=== PATIENT | female | born 1985 | race Caucasian/White ===

== ENCOUNTER 2017-04-15 12:33 | Emergency (ER) | payer OTHER ==
--- NOTE | 2017-04-15 12:42 | PHYS DOC ---
General Chief Complaint: asthma Stated Complaint: SOA Time Seen by MD: 12:41 Source: patient Exam Limitations: no limitations Problems: History of Present Illness Initial Comments Patient is a 32-year-old female who comes complaining of asthma symptoms. Patient states that for the past 2 weeks she's had worsening shortness of breath with exertion. She's been using DuoNeb occasionally without any relief. She has a productive cough with yellow sputum and has had facial pain and pressure with green nasal discharge for 10 days. She denies any chest pain diaphoresis nausea vomiting or neurologic deficit. She is a heavy smoker but states she has cut down the past few days due to this illness. She denies any other symptoms. Vital signs in the emergency department are unremarkable Timing/Duration: other (2 weeks) Severity: moderate Modifying Factors: improves with medication Associated Symptoms: cough, shortness of breath Allergies: Coded Allergies: aspirin (Verified Allergy, Unknown, 04/15/17) latex (Verified Allergy, Unknown, 04/15/17) Uncoded Allergies: TAPE (Adverse Reaction, Unknown, 04/15/17) MEDICAL TAPE Past Medical History Medical History: other (COPD, hypothyroid) Surgical History: other (cholecystectomy, CS, tonsils, thyroidectomy) Social History Smoker: greater than 1 pack/day Alcohol: none Drugs: none Review of Systems Constitutional: denies chills, denies diaphoresis, denies fever, denies malaise Respiratory: see HPI Cardiovascular: denies chest pain, denies palpitations, denies syncope Gastrointestinal: denies abdominal pain, denies diarrhea, denies nausea, denies vomiting Genitourinary: denies dysuria, denies frequency, denies hematuria Musculoskeletal: denies back pain, denies joint swelling, denies neck pain Psychiatric/Neurological: denies headache, denies numbness, denies paresthesia Hematologic/Lymphatic: denies blood clots, denies easy bleeding, denies easy bruising Physical Exam General Appearance: no apparent distress Eyes: bilateral eye normal inspection, bilateral eye PERRL, bilateral eye EOMI Ear, Nose, Throat: hearing grossly normal, normal ENT inspection, normal pharynx (green nasal discharge and postnasal drip, maxillary and frontal sinus tenderness) Neck: non-tender, supple Respiratory: chest non-tender, other (wheezes diffusely with fair air movement and globally decreased breath sounds) Cardiovascular: normal peripheral pulses, regular rate, rhythm Gastrointestinal: non tender, soft Extremities: non-tender, normal inspection 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 PHYSICIAN: MARGIE HICKS DO REASON: sob PROCEDURE: CHEST PA & LATERAL EXAM: CHEST 2 VIEWS History: Shortness of breath COMPARISON: 04/08/2012 TECHNIQUE: PA and lateral chest radiographs FINDINGS: The cardiomediastinal silhouette is within normal limits. The lungs are clear bilaterally. The costophrenic sulci are clear and well demarcated bilaterally. IMPRESSION: No radiographic evidence of an acute cardiopulmonary abnormality. DICTATED AND SIGNED BY: JOSE MAI MD DATE: 04/15/17 1333 CC: MARGIE HICKS DO; KIZZY MARIA Labs unremarkable Patient rechecked after DuoNeb and Medrol. There is a faint wheezes diffusely with good air movement patient states she is feeling much better. Antibiotic treatment will be primarily for sinus infection the patient agrees to stop smoking she expressed agreement and understanding with the treatment plan. Departure Time of Disposition: 15:04 Disposition: 01 HOME, SELF-CARE Diagnosis: COPD exacerbation, sinusitis, tobaccoism Condition: STABLE Patient Instructions: Chronic Obstructive Pulmonary Disease Exacerbation, Easy- to-Read, Smoking Hazards Additional Instructions: Off work through Wednesday note given. Stop smoking, seek medical assistance if necessary. Rest, no strenuous activity. Avoid smoke and environmental allergens. Aggressive hydration with Gatorade or water. Continue current medications including your DuoNeb's every 6 hours. Prescription: cefdinir, albuterol nebs, guaifenesin with codeine, prednisone, albuterol MDI Take medications with food. Follow-up with your doctor on Wednesday for recheck. Return to ED with new or changing symptoms. MARGIE HICKS DO Apr 15, 2017 12:42
[2017-04-15 12:50] VITALS: BP 106/78
--- NOTE | 2017-04-15 13:35 | RAD ---
EXAM: CHEST 2 VIEWS History: Shortness of breath COMPARISON: 04/08/2012 TECHNIQUE: PA and lateral chest radiographs FINDINGS: The cardiomediastinal silhouette is within normal limits. The lungs are clear bilaterally. The costophrenic sulci are clear and well demarcated bilaterally. IMPRESSION: No radiographic evidence of an acute cardiopulmonary abnormality.
[2017-04-15 13:36] LABS: BASO # 0.1 x10^3/uL (0.0-0.2); BASO % 1 % (0-3); EOS # 0.2 x10^3/uL (0.0-0.7); EOS % 2 % (0-3); HEMATOCRIT 37.5 % (36.0-47.0); LYMPH # 2.7 x10^3/uL (1.0-4.8); LYMPH % 31 % (24-48); MEAN CORPUSCULAR HEMOGLOBIN 32 pg (25-35); MEAN CORPUSCULAR HGB CONC 35 g/dL (31-37); MEAN CORPUSCULAR VOLUME 93 fL (79-100); MONO # 0.3 x10^3/uL (0.0-1.1); MONO % 4 % (0-9); NEUT # 5.5 x10^3uL (1.8-7.7); NEUT % 63 % (31-73); PLATELET COUNT 219 x10^3/uL (140-400); RED BLOOD COUNT 4.04 x10^6/uL (3.50-5.40); RED CELL DISTRIBUTION WIDTH 13.4 % (11.5-14.5); WHITE BLOOD COUNT 8.7 x10^3/uL (4.0-11.0)
[2017-04-15 13:42] LABS: CALCIUM 8.6 mg/dL (8.5-10.1); CREATININE 1.5 mg/dL (0.6-1.0); GFR 39.8; POTASSIUM 3.7 mmol/L (3.5-5.1)
[2017-04-15] MEDS ORDERED: IPRATRPIUM/ALBUTEROL 0.5/2.5MG 3 ML NEBU. NEB ONE (13:45)
[2017-04-15] MEDS ORDERED: IV NORMAL SALINE 1,000ML 1,000 ML IV SCH (13:45)
[2017-04-15] MEDS ORDERED: IV NORMAL SALINE 50ML 50 ML ONE (13:45)
[2017-04-15] MEDS ORDERED: guaiFENesin/CODEINE 100mg/10mg 5 ML LIQUID PO ONE (13:45)
[2017-04-15] MEDS ORDERED: cefTRIAXone SODIUM 1 GM VIAL IV ONE (13:45)
[2017-04-15] MEDS ORDERED: methylPREDNISolone SOD SUCC PF 125 MG/2 ML VIAL. IV ONE (13:45)
[2017-04-15] MEDS ORDERED: PRED20TA PO (15:03)
[2017-04-15] MEDS ORDERED: ALBU1.25 NEB (15:03)
[2017-04-15] MEDS ORDERED: CEFD300C PO (15:03)
[2017-04-15] MEDS ORDERED: GUAI118L13 PO (15:03)
[2017-04-15] MEDS ORDERED: ALBU8.5H8 INH (15:07)
== END 2017-04-15 15:38 | disposition home or self-care (01) ==
LOC: ER 12:33
DX: J44.1 Chronic obstructive pulmonary disease with (acute) exacerbation (principal); J32.9 Chronic sinusitis, unspecified; F17.210 Nicotine dependence, cigarettes, uncomplicated; E03.9 Hypothyroidism, unspecified; Z88.6 Allergy status to analgesic agent; Z91.040 Latex allergy status
CPT/HCPCS: 36415; 71020; 80048; 85025; 94640; 96365; 96375; 99285; J0696; J2930; J7620; J7030

== ENCOUNTER 2019-09-14 10:03 | Emergency (ER) | payer OTHER ==
[~2019-09-14] VITALS: Ht 170.2 cm; Wt 108.0 kg
[~2019-09-14 10:03] MED LIST: ALBU1.25 NEB; ALBU2.5V8 INH; CEFD300C PO; GUAI118L13 PO; PRED20TA PO
[2019-09-14 10:16] VITALS: BP 137/75
--- NOTE | 2019-09-14 10:44 | RAD ---
Three-view right ankle and three-view right foot dated 09/14/2019. No comparison available. Clinical data indication: Pain after injury. FINDINGS: 3 views of the right ankle show normal bony alignment. No displaced fracture. No acute osseous or articular abnormality. The talar dome is intact. There is mild soft tissue swelling. 3 views of the right foot show normal bony alignment. No displaced fracture. Postsurgical changes of the first metatarsal and first proximal phalanx. There is a screw at the midshaft of first proximal phalanx that appears to protrude through the lateral cortex into the soft tissues lateral to the first proximal phalanx. Osseous structures otherwise unremarkable. IMPRESSION: 1. No apparent acute bony abnormality. 2. Postsurgical changes as described. Electronically signed by: Bob Dubose MD (09/14/2019 10:42 AM) [facility]
--- NOTE | 2019-09-14 12:45 | PHYS DOC ---
Past History Past Medical History: Anxiety, COPD, Depression, Other Additional Past Medical Histor: PTSD, GRAVES DISEASE, INSOMNIA Past Surgical History: Cholecystectomy, , Tonsillectomy, Other Additional Past Surgical Histo: BUNION REMOVAL Alcohol Use: Occasionally Drug Use: None Adult General Chief Complaint Chief Complaint: FOOT INJURY PAIN HPI HPI Patient is a 34 yo f with cc of foot pain tripped on lego at one am slipped down staris lateral aspect of foot no ankle pain no other injury moderate pain worse with palpation Allergies Allergies Allergies Coded Allergies Type Severity Reaction Last Updated Verified aspirin Allergy Unknown 04/15/17 Yes latex Allergy Unknown 04/15/17 Yes Uncoded Allergies Type Severity Reaction Last Updated Verified TAPE Adverse Reaction Unknown 04/15/17 Physical Exam Physical Exam Constitutional: Well developed, well nourished, no acute distress, non-toxic appearance. [] HENT: Normocephalic, atraumatic, bilateral external ears normal, oropharynx moist, no oral exudates, nose normal. [] Eyes: PERRLA, EOMI, conjunctiva normal, no discharge. [] Back: No tenderness, no CVA tenderness. [] Extremities: ttp lateral aspect foot no ttp of ankle pedal pulse intact small ecchymosis proximal toe fifth Neurologic: Alert and oriented X 3, normal motor function, normal sensory function, no focal deficits noted. [] Psychologic: Affect normal, judgement normal, mood normal. [] Current Patient Data Vital Signs Vital Signs Date Time Temp Pulse Resp B/P (MAP) Pulse Ox O2 Delivery O2 Flow Rate FiO2 09/14/19 10:16 97.9 87 18 137/75 (95) 97 Room Air EKG EKG [] Radiology/Procedures Radiology/Procedures [] Impressions: PROCEDURE: ANKLE RIGHT 3V Three-view right ankle and three-view right foot dated 09/14/2019. No comparison available. Clinical data indication: Pain after injury. FINDINGS: 3 views of the right ankle show normal bony alignment. No displaced fracture. No acute osseous or articular abnormality. The talar dome is intact. There is mild soft tissue swelling. 3 views of the right foot show normal bony alignment. No displaced fracture. Postsurgical changes of the first metatarsal and first proximal phalanx. There is a screw at the midshaft of first proximal phalanx that appears to protrude through the lateral cortex into the soft tissues lateral to the first proximal phalanx. Osseous structures otherwise unremarkable. IMPRESSION: 1. No apparent acute bony abnormality. 2. Postsurgical changes as described. Electronically signed by: Parminder Dubose MD (09/14/2019 10:42 AM) [id number] DICTATED AND SIGNED BY: PARMINDER DUBOSE MD DATE: 09/14/19 1042 CC: SHYAM CAPELLAN MD; KIZZY MARIA ~ Course & Med Decision Making Course & Med Decision Making Pertinent Labs and Imaging studies reviewed. (See chart for details) []foot contusion pt reasured Dragon Disclaimer Dragon Disclaimer This electronic medical record was generated, in whole or in part, using a voice recognition dictation system. Departure Departure: Impression: Primary Impression: Contusion Disposition: 01 HOME, SELF-CARE Condition: STABLE Patient Instructions: Foot Sprain-Brief SHYAM CAPELLAN MD Sep 14, 2019 12:45
== END 2019-09-14 11:30 | disposition home or self-care (01) ==
LOC: ER 10:03
DX: S90.121A Contusion of right lesser toe(s) without damage to nail, initial encounter (principal); J44.9 Chronic obstructive pulmonary disease, unspecified; Z90.49 Acquired absence of other specified parts of digestive tract; Z90.89 Acquired absence of other organs; Z88.6 Allergy status to analgesic agent; Z91.040 Latex allergy status; Z91.048 Other nonmedicinal substance allergy status; W10.9XXA Fall (on) (from) unspecified stairs and steps, initial encounter; Y93.89 Activity, other specified; Y92.89 Other specified places as the place of occurrence of the external cause; Y99.8 Other external cause status
CPT/HCPCS: 73610; 73630; 99284

== ENCOUNTER 2020-05-07 18:28 | Emergency (ER) | payer OTHER ==
[~2020-05-07] VITALS: Ht 170.2 cm; Wt 115.2 kg
[2020-05-07] MEDS ORDERED: IPRATRPIUM/ALBUTEROL 0.5/2.5MG 3 ML NEBU. NEB ONE (19:00)
--- NOTE | 2020-05-07 19:26 | RAD ---
Single view chest dated 05/07/2020: Comparison: 04/15/2017 Clinical Indication: Cough and shortness of breath. Findings: Single upright portable exam of the chest was performed. Heart size and mediastinal contours are within normal limits given technique. The lungs are clear without evidence of focal consolidation. Vascular interstitium is within normal limits. Impression:: No acute radiographic abnormality. Electronically signed by: Bob Dubose MD (05/07/2020 7:23 PM) TOM
--- NOTE | 2020-05-07 19:42 | PHYS DOC ---
Past History Past Medical History: Anxiety, COPD, Depression, Other Additional Past Medical Histor: PTSD, GRAVES DISEASE, INSOMNIA Past Surgical History: Cholecystectomy, , Tonsillectomy, Other Additional Past Surgical Histo: BUNION REMOVAL, thyroid Alcohol Use: Occasionally Drug Use: None General Adult EDM: Chief Complaint: SHORTNESS OF BREATH HPI: HPI: 35-year-old female presents with shortness of breath. Patient has diagnosed COPD. She continues to smoke. She is concerned that she is having COPD exacerbation. She has had increased mucus. She has chest discomfort with coughing but believes it is musculoskeletal. It is not worse with exertion. She denies diaphoresis. She has not had a fever at home. No known COVID-19 exposures. She does have seasonal allergies around this time a year. She has been using her inhaler without a spacer. It does not seem to work for very long. Review of Systems: Review of Systems: Constitutional: Denies fever or chills Eyes: Denies change in visual acuity HENT: Denies nasal congestion or sore throat Respiratory: Cough with shortness of breath Cardiovascular: Denies chest pain or edema GI: Denies abdominal pain, nausea, vomiting, bloody stools or diarrhea : Denies dysuria Musculoskeletal: Denies back pain or joint pain Integument: Denies rash Neurologic: Denies headache, focal weakness or sensory changes Endocrine: Denies polyuria or polydipsia Lymphatic: Denies swollen glands Psychiatric: Denies depression or anxiety Heart Score: Risk Factors: Risk Factors: DM, Current or recent (<one month) smoker, HTN, HLP, family history of CAD, obesity. Risk Scores: Score 0 - 3: 2.5% MACE over next 6 weeks - Discharge Home Score 4 - 6: 20.3% MACE over next 6 weeks - Admit for Clinical Observation Score 7 - 10: 72.7% MACE over next 6 weeks - Early Invasive Strategies Current Medications: Current Meds: Current Medications Medications (Trade) Dose Ordered Sig/Vineet Start Time Stop Time Status Last Admin Dose Admin Albuterol/ Ipratropium (Duoneb) 3 ml 1X ONCE 05/07/20 19:00 05/07/20 19:04 DC Allergies: Allergies: Allergies Coded Allergies Type Severity Reaction Last Updated Verified aspirin Allergy Unknown 04/15/17 Yes latex Allergy Unknown 04/15/17 Yes Uncoded Allergies Type Severity Reaction Last Updated Verified TAPE Adverse Reaction Unknown 04/15/17 Physical Exam: PE: Constitutional: Well developed, well nourished, no acute distress, non-toxic appearance. [] HENT: Normocephalic, atraumatic, bilateral external ears normal, oropharynx moist, no oral exudates, nose normal. [] Eyes: PERRLA, EOMI, conjunctiva normal, no discharge. [] Neck: Normal range of motion, no tenderness, supple, no stridor. [] Cardiovascular:Heart rate regular rhythm, no murmur [] Lungs & Thorax: Bilateral diffuse expiratory wheezing. [] Abdomen: Bowel sounds normal, soft, no tenderness, no masses, no pulsatile mas ses. [] Skin: Warm, dry, no erythema, no rash. [] Back: No tenderness, no CVA tenderness. [] Extremities: No tenderness, no cyanosis, no clubbing, ROM intact, no edema. [] Neurologic: Alert and oriented X 3, normal motor function, normal sensory function, no focal deficits noted. [] Psychologic: Affect normal, judgement normal, mood normal. [] Current Patient Data: Vital Signs: Vital Signs Date Time Temp Pulse Resp B/P (MAP) Pulse Ox O2 Delivery O2 Flow Rate FiO2 05/07/20 18:51 98.1 103 16 150/91 (110) 94 Room Air EKG: EKG: [] Radiology/Procedures: Radiology/Procedures: [] Impressions: Single view chest dated 05/07/2020: Comparison: 04/15/2017 Clinical Indication: Cough and shortness of breath. Findings: Single upright portable exam of the chest was performed. Heart size and mediastinal contours are within normal limits given technique. The lungs are clear without evidence of focal consolidation. Vascular interstitium is within normal limits. Impression:: No acute radiographic abnormality. Electronically signed by: Bob Dubose MD (05/07/2020 7:23 PM) [facility] DICTATED AND SIGNED BY: BOB DUBOSE MD DATE: 05/07/201922 CC: SHERLY JAIN DO; KIZZY MARIA ~ Course & Med Decision Making: Course & Med Decision Making Pertinent Labs and Imaging studies reviewed. (See chart for details) Patient's exam is consistent with COPD exacerbation. We have given her a DuoNeb treatment in the emergency room. I will also give her 125 of Solu-Medrol IV. I will discharge her with an additional 3 days of prednisone 50 mg daily. I have stressed that she must stop smoking. She stated verbal understanding. She is stable for discharge at this time. [] Reji Disclaimer: Reji Disclaimer: This electronic medical record was generated, in whole or in part, using a voice recognition dictation system. Departure Departure: Impression: Primary Impression: COPD with exacerbation Disposition: HOME/RESIDENCE PRIOR TO ADM Condition: STABLE Referrals: KIZZY MARIA (PCP) Patient Instructions: Chronic Obstructive Pulmonary Disease Exacerbation, [id number] Scripts Prednisone (PREDNISONE) 10 Mg Tablet 50 MG PO DAILY for copd for 3 Days, #15 TAB Prov: SHERLY JAIN DO 05/07/20 SHERLY JAIN DO May 07, 2020 19:42
[2020-05-07 19:43] LABS: BASO # 0.1 x10^3/uL (0.0-0.2); BASO % 2 % (0-3); EOS # 0.3 x10^3/uL (0.0-0.7); EOS % 3 % (0-3); HEMATOCRIT 42.8 % (36.0-47.0); HEMOGLOBIN 14.1 g/dL (12.0-15.5); LYMPH # 2.6 x10^3/uL (1.0-4.8); LYMPH % 28 % (24-48); MEAN CORPUSCULAR HEMOGLOBIN 31 pg (25-35); MEAN CORPUSCULAR HGB CONC 33 g/dL (31-37); MEAN CORPUSCULAR VOLUME 94 fL (79-100); MONO # 0.5 x10^3/uL (0.0-1.1); MONO % 6 % (0-9); NEUT # 5.7 x10^3uL (1.8-7.7); NEUT % 61 % (31-73); PLATELET COUNT 230 x10^3/uL (140-400); RED BLOOD COUNT 4.56 x10^6/uL (3.50-5.40); RED CELL DISTRIBUTION WIDTH 13.7 % (11.5-14.5); WHITE BLOOD COUNT 9.3 x10^3/uL (4.0-11.0)
[2020-05-07 20:01] LABS: ALBUMIN 3.5 g/dL (3.4-5.0); ALBUMIN/GLOBULIN RATIO 1.1 (1.0-1.7); GFR 55.9; POTASSIUM 3.9 mmol/L (3.5-5.1); TOTAL BILIRUBIN 0.1 mg/dL (0.2-1.0); TOTAL PROTEIN 6.7 g/dL (6.4-8.2)
[2020-05-07 20:02] LABS: CALCIUM 8.3 mg/dL (8.5-10.1); CREATININE 1.1 mg/dL (0.6-1.0)
[2020-05-07] MEDS ORDERED: methylPREDNISolone SOD SUCC PF 125 MG/2 ML VIAL. IV ONE (21:30)
[2020-05-07 21:32] LABS: BILIRUBIN,URINE NEG (NEG); CLARITY,URINE CLEAR; COLOR,URINE YELLOW; GLUCOSE,URINE NEG (NEG); UROBILINOGEN,URINE 0.2 mg/dL (0.2 mg/dL)
[2020-05-07 21:33] LABS: NITRITE,URINE NEG (NEG)
[2020-05-07] MEDS ORDERED: PRED-220 PO (21:33)
[2020-05-07 21:43] LABS: BACTERIA,URINE 0 /HPF (0-FEW); RBC,URINE RARE /HPF (0-2); SQUAMOUS EPITHELIAL CELL,UR FEW /LPF; WBC,URINE RARE /HPF (0-4)
[2020-05-07 21:46] VITALS: BP 139/91
== END 2020-05-07 21:45 | disposition home or self-care (01) ==
LOC: ER 18:28
DX: J44.1 Chronic obstructive pulmonary disease with (acute) exacerbation (principal); Z88.6 Allergy status to analgesic agent; Z91.040 Latex allergy status
CPT/HCPCS: 36415; 71045; 80053; 81001; 85025; 94640; 96374; 99284; J2930

== ENCOUNTER → 2020-06-26 | Outpatient (CLI) | payer OTHER ==
[~2020-06-26] MED LIST changes: +PRED-220 PO
--- NOTE | 2020-06-26 17:49 | RAD ---
Examination: Digital bilateral diagnostic mammogram. 2. Limited right breast ultrasound. INDICATION: 35-year-old woman with a subareolar right breast lump that intermittently discharges green fluid with expression. She reports a history of previous aspiration of this cyst in the left breast. COMPARISON: None. TECHNIQUE: Bilateral digital diagnostic mammogram was performed with 2-D technique in the CC and MLO projections. Images reviewed with computer-aided detection. Targeted ultrasound of the subareolar right breast in the area of palpable concern was also pursued. FINDINGS: Scattered fibroglandular densities. Left mammogram shows a lucent centered 3.5 cm subareolar mass compatible with a fat-containing benign mass such as a galactocele or a cyst. Right mammogram demonstrates an oval lucent centered mass with thick, partly circumscribed, partly obscured margins correlating with the palpable area of concern is marked with a BB marker. Targeted ultrasound of the right breast revealed a 3.3 cm oval parallel orientation circumscribed mass that is echogenic with peripheral vascularity. No internal vascularity or solid component. Auto Transmission Specialist images were acquired at the 3:00 position subareolar right breast. IMPRESSION: Benign findings compatible with a subareolar right galactocele with possible surrounding inflammation. No sonographic or mammographic findings suspicious for malignancy. BI-RADS Category 2 Benign findings Recommend clinical management (which may include biopsy if there are any clinically suspicious features). In the absence of any clinically suspicious features, age-appropriate routine annual mammographic screening recommended, next due at age 40. Patient entered into a reminder system with targeted due date for next mammogram. Electronically signed by: Josy Geronimo MD (06/26/2020 5:46 PM) [id number]
== END ==
LOC: US 12:23
PROVIDERS: ATTEND Family Medicine
DX: N64.4 Mastodynia (principal); N63.20 Unspecified lump in the left breast, unspecified quadrant; N63.10 Unspecified lump in the right breast, unspecified quadrant
CPT/HCPCS: 76641; 77066

== ENCOUNTER → 2020-12-26 | Outpatient (CLI) | payer OTHER ==
--- NOTE | 2020-12-26 13:40 | RAD ---
EXAM: Cervical spine, 4 views. HISTORY: Pain. COMPARISON: None. FINDINGS: 4 views of the cervical spine are obtained. There is no significant listhesis. There is min imal endplate remodeling at C4-C5. There are surgical clips within the right neck. There is no fractu re. IMPRESSION: Minimal degenerative endplate remodeling at C4-C5. No acute osseous finding. Electronically signed by: Mitzi Holman MD (12/26/2020 1:37 PM) [id number]
--- NOTE | 2020-12-26 14:10 | RAD ---
EXAM: Lumbar spine, 3 views. HISTORY: Pain. COMPARISON: None. FINDINGS: 3 views of the lumbar spine are obtained. There is no listhesis. The vertebral bodies are n ormal in height and the disc spaces are preserved. IMPRESSION: No acute osseous finding. Electronically signed by: Mitzi Holman MD (12/26/2020 2:08 PM) [id number]
== END ==
LOC: DXRAD 13:19
PROVIDERS: ATTEND Psychiatry & Neurology Neurology
DX: M54.5 Low back pain (principal)
CPT/HCPCS: 72040; 72100

== ENCOUNTER → 2021-09-12 | Outpatient (CLI) | payer OTHER ==
--- NOTE | 2021-09-12 17:00 | RAD ---
EXAM: Left elbow, 2 views. HISTORY: Trauma. COMPARISON: None. FINDINGS: 2 views of the left elbow are obtained. There is no fracture, dislocation or subluxation. T here is no elbow effusion. IMPRESSION: No acute osseous finding. Electronically signed by: Mitzi Holman MD (09/12/2021 4:57 PM) [id number]
== END ==
LOC: DXRAD 16:32
PROVIDERS: ATTEND Internal Medicine
DX: M25.521 Pain in right elbow (principal)
CPT/HCPCS: 73070